=== PATIENT | female | born 1965 | race Caucasian/White ===

== ENCOUNTER → 2021-02-17 12:51 | Outpatient (CLI) | payer OTHER, SELFPAY ==
--- NOTE | ~2021-02-17 | MM_ITS ---
EXAMINATION: MM screening nicole BI w joi HISTORY: Screening mammogram TECHNIQUE: Craniocaudal and mediolateral oblique 3-D tomosynthesis images were obtained and synthetic 2-D images were generated. CAD analysis was submitted and interpreted. COMPARISON: No prior mammogram is available for comparison at this institution. BREAST PARENCHYMAL COMPOSITION: There are scattered areas of fibroglandular density. FINDINGS: There is no evidence of suspicious mass, calcification, or architectural distortion to sugg est malignancy in either breast. There has been no suspicious interval change. IMPRESSION: 1. No mammographic evidence of malignancy. 2. Recommend routine screening mammography in one year. 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
== END ==
PROVIDERS: PCP Family Medicine; Visit Provider Obstetrics & Gynecology Gynecology
DX: Z12.31 Encounter for screening mammogram for malignant neoplasm of breast (principal)
CPT/HCPCS: 77063; 77067

== ENCOUNTER 2021-04-10 10:09 | Emergency (ER) | payer OTHER, SELFPAY ==
[2021-04-10 10:53] VITALS: BP 170/74; PULSE 86; RESP 16; TEMP 36.5; O2SAT 98
--- NOTE | 2021-04-10 11:33 | ED.URI ---
HPI - URI/Sore Throat General Chief Complaint: Upper Respiratory Infection Stated Complaint: Chest Congestion,Cough,Sinus Time Seen by Provider: 04/10/21 11:23 Source: patient and RN notes reviewed Mode of arrival: ambulatory Limitations: no limitations History of Present Illness HPI Narrative: Patient presents today complaining of 4-day history of postnasal drip, nonproductive cough, nasal congestion, sore throat, chest heaviness. Denies fever, nausea, vomiting, diarrhea. Denies history of asthma or COPD. She has been taking Mucinex with some relief. MD elicited complaint: cough and nasal congestion Related Data Home Medications Medication Instructions Recorded Confirmed bupropion HCl 150 mg PO DAILY 04/10/21 04/10/21 clonazepam 0.5 mg PO PRN PRN 04/10/21 04/10/21 pantoprazole 40 mg PO DAILY 04/10/21 04/10/21 paroxetine HCl 20 mg PO DAILY 04/10/21 04/10/21 Allergies Allergy/AdvReac Type Severity Reaction Status Date / Time red dye Allergy Intermediate Hives Verified 04/10/21 10:59 Review of Systems Review of Systems: CONSTITUTIONAL: Denies body aches, fever, chills, or sweats. EYES: Denies visual changes, redness, or discharge. ENT: Denies rhinorrhea, or otalgia.+ Congestion, sore throat, postnasal drip CARDIOVASCULAR: Denies chest pain, palpitations, or edema. RESPIRATORY: Denies dyspnea.+ Cough, chest heaviness GASTROINTESTINAL: Denies abdominal pain, nausea, vomiting, or diarrhea. GENITOURINARY: Denies dysuria or hematuria. SKIN: Denies rash, itching, or wounds. MUSCULOSKELETAL: Denies back pain, joint pain, or myalgia. NEUROLOGIC: Denies headache, numbness, tingling, or weakness. PSYCH: Denies depression or anxiety. PMFSH Social History Social History (Updated 04/10/21 @ 11:36 by Shannon Zeng, [facility], ) Smoking status: Light tobacco smoker Tobacco type: cigarettes Comments At time of signature, I have reviewed and agree with nursing past medical, surgical, social and family history unless otherwise noted. Please see nursing chart for further information. There is no relevant family history pertinent to the presenting complaint Exam Narrative: GENERAL: Well-appearing, well-nourished, and in no acute distress. HEAD: Normocephalic, atraumatic. EYES: EOMI. No redness or drainage. Conjunctivae normal. ENT: Mucous membranes pink and moist. Nares mildly congested. No rhinorrhea. TMs normal bilaterally. Throat normal. Uvula midline. NECK: Normal AROM. Supple. No lymphadenopathy. CHEST: No respiratory distress. Clear to auscultation. HEART: Regular rate and rhythm. No murmur appreciated. Normal peripheral pulses. EXTREMITIES: Normal range of motion. No edema. SKIN: Warm, dry, no rash. Capillary refill normal. Normal skin turgor. NEURO: No focal deficits. Alert and oriented x3. Gait steady. PSYCH: Normal affect. No signs of depression or anxiety. Course Course Level of Care: Express Care Visit Vital Signs Vital signs: Vital Signs Temperature 97.7 F 04/10/21 10:53 Pulse Rate 86 04/10/21 10:53 Respiratory Rate 16 04/10/21 10:53 Blood Pressure 170/74 H 04/10/21 10:53 Pulse Oximetry 98 04/10/21 10:53 Temperature 97.7 F 04/10/21 10:53 Pulse Rate 86 04/10/21 10:53 Respiratory Rate 16 04/10/21 10:53 Blood Pressure 170/74 H 04/10/21 10:53 Pulse Oximetry 98 04/10/21 10:53 Reviewed. Pt has been instructed to follow up with her PCP regarding her elevated blood pressure today. MDM - URI/Sore Throat Differential Diagnosis Differential diagnosis: Likely upper respiratory infection, sinusitis, viral infection, bronchitis, pharyngitis and other (Strep throat, COVID-19) Lab Data Attestation: I reviewed the patient's lab results. Lab results narrative: Rapid COVID-19 test positive Labs: Strep Screen Presumptive Negative *(Reference Range: Negative)* Critical Care Time Critical Care Time Critical Care
== END 2021-04-10 12:05 | disposition home or self-care (01) ==
PROVIDERS: Emergency Provider Nurse Practitioner; PCP Family Medicine
DX: U07.1 COVID-19 (principal); F17.210 Nicotine dependence, cigarettes, uncomplicated; K21.9 Gastro-esophageal reflux disease without esophagitis
CPT/HCPCS: 87426; 87880; 99213; C9803; G0463

== ENCOUNTER 2023-09-26 13:34 | Outpatient (CLI) | payer OTHER, SELFPAY ==
--- NOTE | ~2023-09-26 | US_ITS ---
EXAMINATION: US transvaginal DATE: 09/26/2023 14:05 INDICATION: Postmenopausal bleeding. TECHNIQUE: Multiple transvaginal sonographic images of the pelvis were obtained. COMPARISON: None. FINDINGS: The uterus measures 5.0 x 2.7 x 3.0 cm. There is no free fluid in the pelvis. The endometrial complex measures 8 mm in thickness. There is a 1.1 cm intramural fibroid. The right ovary measures 2.0 x 1.2 x 2.0 cm. The left ovary measures 1.2 x 0.7 x 1.3 cm. IMPRESSION: 1. Thickened endometrial complex. The differential diagnosis includes endometrial hyperplasia, polyp, and carcinoma. Biopsy is recommended. 2. Small uterine fibroid. Reviewed, dictated and finalized at location A. IMPRESSION: 1. Thickened endometrial complex. The differential diagnosis includes endometri al hyperplasia, polyp, and carcinoma. Biopsy is recommended. 2. Small uterine fibroid.
== END 2023-09-26 13:35 ==
PROVIDERS: PCP Obstetrics & Gynecology Gynecology; Visit Provider Obstetrics & Gynecology Gynecology
DX: D25.1 Intramural leiomyoma of uterus (principal); R93.89 Abnormal findings on diagnostic imaging of other specified body structures
CPT/HCPCS: 76830

== ENCOUNTER 2023-11-05 00:22 | Day surgery (SDC) | payer OTHER, SELFPAY ==
[2023-10-29 15:40] VITALS: BMI 32.1
--- NOTE | 2023-10-29 15:43 | SUR.PREOP ---
Report to the Outpatient Waiting Room, entrance under the green pavilion located off [facility], at time 0830 on date 11/05/23. Planned Procedure Time: 1030. Time changes happen often and if your time is changed the preop area will call you the afternoon before. - You and your visitor will be asked to self-screen and do not enter if you have any COVID symptoms. - A mask is optional within the hospital at this time. Patients may have clear liquids (water, carbonated beverages, clear teas, apple juice) until 3 hours prior to surgery with a maximum of 20 ounces. - No food from midnight until time of surgery - Infants may have breast milk until 4 hours before surgery, formula 6 hours prior to surgery. - Children will be allowed to drink immediately following surgery. If applicable, please bring a bottle or sippy cup to assist with drinking. Juice, water, soda, and popsicles are readily available. For infants on formula, please bring formula the day of surgery. Pacifiers are allowed. Take the following medications with a SIP of water the morning of surgery: n/a DO NOT STOP ANY OF YOUR OTHER PRESCRIPTION MEDICATIONS PRIOR TO SURGERY ?EXCEPT THE FOLLOWING Medications to discontinue per physician hold semaglutive 10 days and centrum silver 3 days prior to surgery Date to take last dose Please no make-up, nail nepali, hairspray, perfume, deodorant, or body powder the day of surgery. No jewelry (including any body piercings) or valuables the day of surgery, leave them at home. Please take a shower or bath the night before, or the morning of, surgery with an antibacterial soap. Wear comfortable, loose fitting clothing. Children are encouraged to wear pajamas. - Jewelry must be removed prior to entering the operating room. Rings and piercings that are not removed may be cut off. - The hospital will not accept responsibility for valuables. - Please leave all valuables, including medications, at home the day of surgery. If you are going home after surgery, a licensed concrete truck driver must drive you home. - NO public transportation without another adult if you receive anesthesia. - We recommend that an adult stay with you for 24 hours following discharge. - We also recommend that you do not drive, make important decision, drink alcoholic beverages, or take any drugs that were not prescribed by your health care provider for at least 24 hours after your discharge time. For Pediatric surgeries, we recommend two adults accompany the child home. Follow any additional instructions given to you from your surgeon. If you or anyone in your household have experienced Covid symptoms in the past week, please notify your surgeon or the nurse liaison at the phone number below for possible testing. Telephone instructions given to __patient__and asked if any additional questions and then verbalized understanding. Patient advised to call surgeon office or pre surgery nurse liaison [phone] if any additional questions.
--- NOTE | 2023-11-05 07:32 | WPDANESEPPF ---
Anes - Initial Pre Proc Eval Procedure: Operation Date: 11/05/23 10:30 Proposed Procedures p Hysteroscopy Dilation and Curettage - Abbey Hewitt MD Date/Time: 11/05/23 07:32 Surgeon: Abbey Hewitt MD Pre Op Diagnosis: postmenopausal bleeding Patient Data Age: 58 Gender: F Height: 1.6 m Weight: 82.1 kg Allergies Allergy/AdvReac Type Severity Reaction Status Date / Time red dye Allergy Intermediate Hives Verified 11/05/23 09:47 Home Medications Medication Instructions Recorded Confirmed Type Centrum Silver Ultra Women's 1 cap PO DAILY 10/29/23 10/29/23 History semaglutide (weight loss) 1 mg/0.5 1 mg subcut WEEKLY 10/29/23 10/29/23 History mL subcutaneous pen injector Patient hx anesthesia problems: none Family hx anesthesia problems: none Results Review: All pre-operative results and documents have been reviewed as part of the pre-operative evaluation. [facility] Past Medical History Medical History (Updated 11/05/23 @ 07:42 by Abbey Hewitt MD) Anxiety GERD (gastroesophageal reflux disease) Surgical History Surgical History (Updated 11/05/23 @ 07:41 by Abbey Hewitt MD) History of sinus surgery Social History Social History (Updated 04/10/21 @ 11:36 by Shannon Zeng, [facility], ) Smoking status: Never smoker Tobacco type: cigarettes Alcohol use details: socially Living arrangements: with family Anes - Eval Final PreProcedure Day of Procedure 11/05/23 07:32 Patient weight: obese Heart: regular rate and rhythm Lungs: clear to auscultation Airway: Mallampati scale class II Neurological: alert and oriented Last oral intake: >/= 8 hours ASA classification: II Emergent: no Anesthetic plan: proceed Anesthesia type and monitoring: general GIVS and standard monitoring Results Review: All pre-operative results and documents have been reviewed as part of the pre-operative evaluation. Informed Consent: The patient's anesthetic plan and its attendant risks and benefits were discussed with the patient/family/POA. Questions were solicited and answers provided to the satisfaction of the patient/family/POA.
--- NOTE | 2023-11-05 07:40 | P.HP_ITS ---
History of Present Illness History of Present Illness Consent: Risks, benefits, and alternatives have been discussed and questions answered. Patient agrees to proceed with procedure. Chief complaint: postmenopausal bleeding Narrative: Yaneli Hickey is a 58 year old female with postmenopausal bleeding and thickened endometrium. It was recommended to undergo D&C hysteroscopy to further evaluate. Risks of infection, bleeding, perforation, and possible pathology are discussed. Patient voices understanding and agrees to proceed. Review of Systems Review of Systems: not repeated day of surgery; patient states no changes in status [facility] Past Medical History Medical History (Updated 11/05/23 @ 07:42 by Abbey Hewitt MD) Anxiety GERD (gastroesophageal reflux disease) Surgical History Surgical History (Updated 11/05/23 @ 07:41 by Abbey Hewitt MD) History of sinus surgery Social History Social History (Updated 04/10/21 @ 11:36 by Shannon Zeng, [facility], ) Smoking status: Never smoker Tobacco type: cigarettes Alcohol use details: socially Living arrangements: with family Meds Home Medications and Allergies Home Medications Medication Instructions Recorded Confirmed Type Centrum Silver Ultra Women's 1 cap PO DAILY 10/29/23 10/29/23 History semaglutide (weight loss) 1 mg/0.5 1 mg subcut WEEKLY 10/29/23 10/29/23 History mL subcutaneous pen injector Allergies Allergy/AdvReac Type Severity Reaction Status Date / Time red dye Allergy Intermediate Hives Verified 04/10/21 10:59 Exam Const: General: healthy appearing and alert Orientation/consciousness: patient oriented x3 Resp: Effort & Inspection: normal respiratory effort : External Female Exam: normal external appearance Speculum Exam - Vagina: normal appearance of the vagina and normal vaginal discharge Speculum Exam - Cervix: normal appearance of the cervix Bimanual exam- vagina & uterus: uterine size normal and consistency normal Bimanual Exam- Adnexa, other: normal adnexae and No adnexal tenderness Neuro: General: patient oriented x3 Assessment and Plan Assessment and plan (1) Post-menopausal bleeding: Code(s): N95.0 - Postmenopausal bleeding Status: Acute Assessment and Plan: plan to proceed with D&C hysteroscopy
--- NOTE | 2023-11-05 07:40 | WPDHPUPDATE1 ---
History and Physical Update Update Date/Time: 11/05/23 07:40 History and Physical has been reviewed, including an updated exam of the patient. There are NO changes in the patient's condition. Risks, benefits, and alternatives have been discussed and questions answered. Patient agrees to proceed with procedure.
[2023-11-05 08:55] VITALS: BP 137/87; PULSE 67; RESP 14; TEMP 36.8; O2SAT 100
[2023-11-05] MEDS: LACTATED RINGERS 1,000 ML 30 ML IV CONT (08:55)
[2023-11-05] MEDS: KETOROLAC 30 MG/ML VIAL (*BKC) IV PUSH (10:58)
--- NOTE | 2023-11-05 11:18 | W.PM.PROC2 ---
Procedure Note - Detailed Date of Procedure 11/05/23 Pre-op Diagnosis postmenopausal bleeding Post-op Diagnosis Same Procedure Performed D&C hysteroscopy Surgeon Abbey Hewitt MD Anesthesia MAC Findings internal cervical stenosis uterus sounds to 6cm and grossly appears atrophic Description of Procedure The patient is taken to the operating room and placed under anesthesia in the dorsal lithotomy position. She was and draped usual sterile. Carlotta speculum was placed vagina and cervix grasped on the anterior lip with a tenaculum. Uterus is attempted to be sounded and internal cervical stenosis is encountered. The 3 Hegar dilator is required to enter the canal. The uterus is then able to be sounded to 6cm. The diagnostic hysteroscope was placed and with no abnormalities noted it is removed. The curette would not fit through the internal os therefore the cervix was dilated to a 5 Hegar. The sharp OO curette was then placed and the endometrium curetted until a good uterine cry was noted in all areas. Minimal material was obtained consistent with the atrophic appearance. All instruments were then removed. Sponge, needle, and instrument counts are correct per the OR staff. Patient is awakened from anesthesia and taken to recovery in stable condition. Estimated Blood Loss 5 Drains No Packing No Pathology Yes ( Endometrial curettings) Complications No immediate complications Condition Stable Disposition PACU
[2023-11-05 11:23] VITALS: BP 122/74; PULSE 73; RESP 12; O2SAT 97
[2023-11-05 11:50] VITALS: BP 142/78; PULSE 60; RESP 20
[2023-11-05] MEDS: oxyCODONE HCL (*CRX) 5 MG TAB IR PO (11:53)
[2023-11-05 12:15] VITALS: BP 128/78; PULSE 55; RESP 20
== END 2023-11-05 12:20 | disposition home or self-care (01) ==
PROVIDERS: PCP Family Medicine; Visit Provider Obstetrics & Gynecology Gynecology
PROC: 0U5B8ZZ Destruction of Endometrium, Via Natural or Artificial Opening Endoscopic (ICD-10-PCS; CPT 58563; principal; 2023-11-05 10:30)
DX: N85.8 Other specified noninflammatory disorders of uterus (principal); F41.9 Anxiety disorder, unspecified; K21.9 Gastro-esophageal reflux disease without esophagitis; E66.9 Obesity, unspecified; Z68.31 Body mass index [BMI] 31.0-31.9, adult; Z98.890 Other specified postprocedural states; Z79.85 Long-term (current) use of injectable non-insulin antidiabetic drugs
CPT/HCPCS: 58558; 88305; A9270; J1885; J2405; J2704; J3010; J7120

== ENCOUNTER 2024-03-20 10:43 | Outpatient (CLI) | payer OTHER, SELFPAY ==
--- NOTE | ~2024-03-20 | MM_ITS ---
EXAMINATION: MM screening nicole BI w joi HISTORY: Screening TECHNIQUE: Craniocaudal and mediolateral oblique 3-D tomosynthesis images were obtained and synthetic 2-D images were generated. CAD analysis was submitted and interpreted. COMPARISON: 02/17/2021 BREAST PARENCHYMAL COMPOSITION: Not dense: There are scattered areas of fibroglandular density. FINDINGS: There is no evidence of suspicious mass, calcification, or architectural distortion to sugg est malignancy in either breast. There has been no suspicious interval change. IMPRESSION: 1. No mammographic evidence of malignancy. 2. Recommend routine screening mammography in one year. 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
== END 2024-03-20 10:44 | disposition home or self-care (01) ==
LOC: MICIMG 10:45
PROVIDERS: PCP Nurse Practitioner Women's Health; Visit Provider Nurse Practitioner Women's Health
DX: Z12.31 Encounter for screening mammogram for malignant neoplasm of breast (principal)
CPT/HCPCS: 77063; 77067

== ENCOUNTER 2024-03-26 00:02 | Day surgery (SDC) | payer OTHER, SELFPAY ==
[2024-03-18 10:06] VITALS: BMI 31.8
[2024-03-26 06:51] VITALS: BP 132/91; PULSE 87; RESP 20; TEMP 36.1; O2SAT 97
[2024-03-26 06:57] LABS: BEDSIDEPREGUCG Negative (Negative)
[2024-03-26] MEDS: LACTATED RINGERS 1,000 ML 150 ML IV CONT (07:02)
--- NOTE | 2024-03-26 07:08 | P.HP_ITS ---
History of Present Illness History of Present Illness Consent: Risks, benefits, and alternatives have been discussed and questions answered. Patient agrees to proceed with procedure. Chief complaint: Neoplasm Screening Narrative: Yaneli Hickey is a 58 year old female with history of colon polyp. Review of Systems Review of Systems: All systems reviewed & are unremarkable except as noted in HPI and below PMFSH Past Medical History Medical History (Updated 03/26/24 @ 07:09 by Garrison Webb MD) Polyp of colon GERD (gastroesophageal reflux disease) Anxiety Surgical History Surgical History (Updated 11/05/23 @ 07:41 by Abbey Hewitt MD) History of sinus surgery Social History Social History (Updated 04/10/21 @ 11:36 by Shannon Zeng, [facility], ) Smoking status: Former smoker Tobacco type: cigarettes Alcohol intake: current Drinks per week: 12 Alcohol use details: socially Substance use type: does not use Living arrangements: with family Spiritual care concerns: No Meds Home Medications and Allergies Home Medications ?Medication ?Instructions ?Recorded ?Confirmed ?Type Centrum Silver Ultra Women's 1 cap PO DAILY 10/29/23 03/18/24 History semaglutide (weight loss) 1 mg/0.5 1 mg subcut WEEKLY 10/29/23 03/18/24 History mL subcutaneous pen injector Allergies Allergy/AdvReac Type Severity Reaction Status Date / Time red dye Allergy Intermediate Hives Verified 03/26/24 06:48 Vital Signs Vital Signs - 24 hr 03/26/24 06:51 Temperature 97 F L Pulse Rate 87 Respiratory Rate 20 Blood Pressure 132/91 H Pulse Oximetry 97 Oxygen Delivery Room Air Exam Const: General: comfortable and no acute distress HENMT: Face/Nose/Sinus: Normal nares present Eyes: General: appearance normal, both eyes and all related structures Neck: Neck: no JVD Resp: Auscultation: clear to auscultation bilaterally Cardio: Rate: regular rate Rhythm: regular rhythm GI: Inspection: non-distended GI Palp: Yes Soft to palpation Skin: General skin exam: normal color Neuro: General: gait normal Speech: normal speech Extrem: General: normal to inspection Psych: Mental Status: mental status grossly normal Assessment and Plan Assessment and plan (1) Polyp of colon: Code(s): K63.5 - Polyp of colon Status: Acute Assessment and Plan: colonoscopy
--- NOTE | 2024-03-26 07:54 | WPDANESEPPF ---
Anes - Initial Pre Proc Eval Procedure: Operation Date: 03/26/24 08:00 Proposed Procedures p Screening Colonoscopy - Garrison Webb MD Date/Time: 03/26/24 07:54 Surgeon: Garrison Webb MD Pre Op Diagnosis: Neoplasm Screening Patient Data Age: 58 Gender: F Height: 1.6 m Weight: 80.8 kg Last Vital Signs Temp 36.1 C L 03/26/24 06:51 Pulse 87 03/26/24 06:51 Resp 20 03/26/24 06:51 BP 132/91 H 03/26/24 06:51 Pulse Ox 97 03/26/24 06:51 O2 Del Method Room Air 03/26/24 06:51 Allergies Allergy/AdvReac Type Severity Reaction Status Date / Time red dye Allergy Intermediate Hives Verified 03/26/24 06:48 Home Medications ?Medication ?Instructions ?Recorded ?Confirmed ?Type Centrum Silver Ultra Women's 1 cap PO DAILY 10/29/23 03/18/24 History semaglutide (weight loss) 1 mg/0.5 1 mg subcut WEEKLY 10/29/23 03/18/24 History mL subcutaneous pen injector Laboratory Tests 03/26/24 06:55 POC Urine HCG, Qual Negative (Negative) Patient hx anesthesia problems: none Family hx anesthesia problems: none Results Review: All pre-operative results and documents have been reviewed as part of the pre-operative evaluation. [facility] Past Medical History Medical History Polyp of colon GERD (gastroesophageal reflux disease) Anxiety Surgical History Surgical History History of sinus surgery Social History Social History Smoking status: Former smoker Tobacco type: cigarettes Alcohol intake: current Drinks per week: 12 Alcohol use details: socially Substance use type: does not use Living arrangements: with family Spiritual care concerns: No Anes - Eval Final PreProcedure Day of Procedure 03/26/24 07:54 Patient weight: obese Heart: regular rate and rhythm Lungs: clear to auscultation Airway: Mallampati scale class II Neurological: alert and oriented Last oral intake: >/= 8 hours ASA classification: II Emergent: no Anesthetic plan: proceed Anesthesia type and monitoring: general GIVS and standard monitoring Results Review: All pre-operative results and documents have been reviewed as part of the pre-operative evaluation. Informed Consent: The patient's anesthetic plan and its attendant risks and benefits were discussed with the patient/family/POA. Questions were solicited and answers provided to the satisfaction of the patient/family/POA.
[2024-03-26 08:24] VITALS: BP 123/75; PULSE 73; RESP 23; O2SAT 97
[2024-03-26 08:34] VITALS: BP 118/63; PULSE 71; RESP 24; O2SAT 100
[2024-03-26 08:44] VITALS: BP 112/76; PULSE 74; RESP 20; O2SAT 100
== END 2024-03-26 08:52 | disposition home or self-care (01) ==
PROVIDERS: Anesthesiology; PCP Nurse Practitioner Women's Health; Referring Provider Obstetrics & Gynecology Gynecology; Visit Provider Internal Medicine Gastroenterology
PROC: 0DJD8ZZ Inspection of Lower Intestinal Tract, Via Natural or Artificial Opening Endoscopic (ICD-10-PCS; CPT 45378; principal; 2024-03-26 08:00)
DX: Z12.11 Encounter for screening for malignant neoplasm of colon (principal); Z86.0100 Personal history of colon polyps, unspecified; Z87.891 Personal history of nicotine dependence; E66.9 Obesity, unspecified; Z68.31 Body mass index [BMI] 31.0-31.9, adult
CPT/HCPCS: 45378; J2003; J2704; J7120